=== PATIENT | female | born 1950 | race Caucasian/White ===

== ENCOUNTER 2021-06-22 19:55 | Inpatient (IN) | payer OTHER ==
[~2021-06-22] VITALS: Ht 162.6 cm; Wt 57.3 kg
[2021-06-22] MEDS ORDERED: IV NS 0.9% 1,000 ML BAG IV ONE (20:00)
--- NOTE | 2021-06-22 20:02 | NUR ---
[id number] FROM THE STREETS FOUND SLEEPING IN FRONT OF SOMEONES HOUSE C/O CHRONIC BODY PAIN. PATIENT ALERT AND ORIENTED X3. AMBULATORY WITH NON LABORED BREATHING IN BED 14 ON MONITOR AWAITING MD MONTOYA.
--- NOTE | 2021-06-22 20:07 | NUR ---
20G ESTABLISHED AT [facility]. BLOOD DRAWN AND SENT TO LAB.
--- NOTE | 2021-06-22 20:08 | NUR ---
FOUNDATION COORDINATOR AT BEDSIDE FOR EKG
--- NOTE | 2021-06-22 20:15 | NUR ---
COVID SWAB COLLECTED SENT TO LAB
[2021-06-22 20:17] LABS: BASOPHILS % (AUTO) 0.6 % (0.0-2.0); EOSINOPHILS % (AUTO) 4.2 % (0.0-6.0); HEMATOCRIT 31 % (33-45); HEMOGLOBIN 10.4 g/dL (11.5-14.8); LYMPHOCYTES # (AUTO) 2.9 K/uL (0.8-4.8); LYMPHOCYTES % (AUTO) 37.2 % (20.0-44.0); MEAN CORPUSCULAR HGB CONC 33 g/dl (31.0-36.0); MEAN CORPUSCULAR VOLUME 97 fL (82-100); MONOCYTES # (AUTO) 0.4 K/uL (0.1-1.30); MONOCYTES % (AUTO) 5.5 % (2.0-12.0); NEUTROPHILS # (AUTO) 4.1 K/uL (1.8-8.9); NEUTROPHILS % (AUTO) 52.5 % (43.0-81.0); PLATELET COUNT (AUTO) 449 K/uL (150-450); RED BLOOD CELL COUNT(AUTO) 3.22 MIL/uL (4.0-5.2); WHITE BLOOD COUNT (AUTO) 7.8 K/uL (4.3-11.0)
[2021-06-22 20:43] LABS: ALANINE AMINOTRANSFERASE 20 U/L (12-78); ALCOHOL, BLOOD 64 mg/dL (0-0); ALKALINE PHOSPHATASE 89 U/L (46-116); ASPARTATE AMINOTRANSFERASE 17 U/L (15-37); BILIRUBIN,TOTAL 0.1 mg/dL (0.2-1.0); CALCIUM, SERUM 8.3 mg/dL (8.5-10.1); CARBON DIOXIDE 24 mmol/L (21-32); CHLORIDE 106 mmol/L (98-107); CREATININE 1.1 mg/dL (0.6-1.3); GLUCOSE 114 mg/dL (74-106); POTASSIUM 3.7 mmol/L (3.5-5.1); SODIUM SERUM 141 mmol/L (136-145); TOTAL PROTEIN, SERUM 6.6 g/dL (6.4-8.2); UREA NITROGEN, BLOOD 21 mg/dL (7-18)
[2021-06-22 20:53] LABS: ACETAMINOPHEN < 0 ug/ml (10-30)
--- NOTE | 2021-06-22 21:54 | NUR ---
URINE COLLECTED AND SENT TO LAB
[2021-06-22 22:29] LABS: BILIRUBIN,URINE NEGATIVE (NEGATIVE); COLOR,URINE YELLOW (YELLOW); LEUKOCYTE ESTERASE ,URINE SMALL (NEGATIVE); NITRITE, URINE POSITIVE (NEGATIVE); PROTEIN,URINE NEGATIVE (NEGATIVE); UGLUCOSE NEGATIVE (NEGATIVE); UROBILINOGEN,URINE 0.2 EU/dL (0.2)
[2021-06-22] MEDS ORDERED: HYDROCODONE/APAP 5/325MG TABLET PO PRN (23:00)
[2021-06-22] MEDS ORDERED: ONDANSETRON HCL/PF 4 MG/2 ML VIAL IVP PRN (23:00)
[2021-06-22] MEDS ORDERED: MAGNESIUM HYDROXIDE 30 ML UDC PO PRN (23:00)
[2021-06-22] MEDS ORDERED: ACETAMINOPHEN 325 MG TABLET PO PRN (23:00)
[2021-06-22] MEDS ORDERED: Z GUARD REMEDY 4 OZ OINT TP PRN (23:00)
[2021-06-22] MEDS ORDERED: ZOLPIDEM TARTRATE 5 MG TABLET PO PRN (23:00)
[2021-06-22] MEDS ORDERED: LORAZEPAM INJ 2 MG/ML VIAL IV PRN (23:00)
[2021-06-22] MEDS ORDERED: MAG HYDROX/AL HYDROX/SIMETH 30 ML UDC PO PRN (23:00)
--- NOTE | 2021-06-22 23:05 | NUR ---
REPORT GIVEN TO SERAFIN STYLES
[2021-06-22 23:09] LABS: BACTERIA,URINE Many /HPF (None Seen); RBC,URINE 0-2 /HPF (0-2); SQUAMOUS EPITHELIAL CELL,UR Few /HPF (None Seen)
[2021-06-22 23:20] VITALS: BP 143/71
--- NOTE | 2021-06-22 23:28 | NUR ---
PATIENT TRANSFERRED, VSS.
[2021-06-22 23:35] VITALS: BP 143/71
--- NOTE | 2021-06-22 23:35 | NUR ---
RN NOTES RECEIVED PATIENT FROM ER WITH DX. OF FAILURE TO THRIVE, A/OX2-3, HOMELESS BUT COOPERATIVE, SKIN ASSESSMENT DONE, DENIES PAIN, GAVE BED BATH, NO SOB, BED IN LOCKED POSITION, SAFETY MEASURES APPLIED, CALL LIGHT WITHIN REACH, WILL CONTINUE TO MONITOR
[2021-06-23] MEDS: IV NS 0.9% 1,000 ML IV PRN (00:27)
--- NOTE | 2021-06-23 06:24 | NUR ---
RN NOTES AWAKE, MORNING CARE RENDERED, DENIES PAIN, NO SOB, SAFETY MEASURED APPLIED, PT. NEEDS ATTENDED
[2021-06-23 06:57] LABS: CALCIUM, SERUM 8.2 mg/dL (8.5-10.1); CREATININE 0.8 mg/dL (0.6-1.3); MAGNESIUM 1.7 mg/dL (1.8-2.4); PHOSPHORUS 3.4 mg/dL (2.5-4.9); POTASSIUM 3.7 mmol/L (3.5-5.1)
[2021-06-23 07:32] LABS: THYROID STIMULATING HORMONE 0.527 uIU/mL (0.358-3.74)
[2021-06-23 07:56] LABS: BASOPHILS # (AUTO) 0.2 K/uL (0.0-0.2); BASOPHILS % (AUTO) 1.7 % (0.0-2.0); EOSINOPHILS % (AUTO) 3.4 % (0.0-6.0); HEMATOCRIT 32 % (33-45); HEMOGLOBIN 10.6 g/dL (11.5-14.8); LYMPHOCYTES # (AUTO) 3.4 K/uL (0.8-4.8); LYMPHOCYTES % (AUTO) 37.4 % (20.0-44.0); MEAN CORPUSCULAR HGB CONC 33 g/dl (31.0-36.0); MEAN CORPUSCULAR VOLUME 96 fL (82-100); MONOCYTES # (AUTO) 0.6 K/uL (0.1-1.30); MONOCYTES % (AUTO) 6.5 % (2.0-12.0); NEUTROPHILS # (AUTO) 4.7 K/uL (1.8-8.9); PLATELET COUNT (AUTO) 458 K/uL (150-450); RED BLOOD CELL COUNT(AUTO) 3.31 MIL/uL (4.0-5.2); WHITE BLOOD COUNT (AUTO) 9.2 K/uL (4.3-11.0)
--- NOTE | 2021-06-23 08:01 | NUR ---
RN OPENING NOTE PATIENT RECEIVED IN BED, AO X 2-3, ABLE TO RESPONDS ALL STIMULI. IN NO ACUTE DISTRESS NOTED. RESPIRATORY EVEN AND UNLABORED ON RA. SKIN IS WARM TO TOUCH, KEEP CLEAN/DRY. KEPT ELEVATED HOB FOR ENSURE AIRWAY AND ASPIRATION PRECAUTION, ALSO LOWEST POSITION OF THE BED, S/R UP X 3, ALL SAFETY PRECAUTION APPLIED. CALL LIGHT WITHIN REACH, WILL CONTINUE TO MONITOR.
[2021-06-23] MEDS: PANTOPRAZOLE 40 MG TABLET.DR PO SCH (08:34)
[2021-06-23] MEDS: CEPHALEXIN MONOHYDRATE 500 MG CAPSULE PO SCH ×2 (08:35→20:56)
[2021-06-23] MEDS: Magnesium 1GM/D5W 100ML PREMIX 100 ML IV SCH ×2 (10:32→12:00)
--- NOTE | 2021-06-23 10:38 | NUR ---
SS Consult: SS consult requested for homelessness, drug use. The pt. is alert & oriented x 2 and makes good eye contact. The pt. has depressed mood & affect. The pt. possible cognitive deficit, poor historian. Pt. has slurred speech possibly secondary to missing teeth. Pt.'s denies SI/HI and denies auditory hallucinations. Pt. stated she experiences Visual hallucinations and she sees "hot dogs". Pt. denies history of mental illness, and states she has been experiencing homelessness for the past 10 years. Per pt. she does not receive any financial benefits and "people feed her". Per pt. she has 3 children and states 2 sons are policemen but could not elaborate is they live in the area. Pt. did not respond when asked if she is in communication with them. 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 Pt. denies drug or alcohol use. SW provided motivational interviewing and brief drug use intervention. SW offered pt. referral for drug rehab and pt. refused. Per nurse, the pt. can ambulate with a walker, is incontinent and has HX. of Seizure Disorder. Pt. could benefit from placement. SW spoke with CM about placement at bedside. Pt. was agreeable to possible SNF placement. SW provided provided pt. with homeless, addiction and mental health resources and pt. accepted them. Pt. signed homeless waiver and it was placed in the patient's chart. Year-round shelters: [facility] [address] [place] [address] ; [facility] [address] [place] [address]; [facility] [address] [facility]. [facility] [address] Hygiene: [facility]: [address] [place] ; [facility] [address] [facility] ; [facility] [address] . Food Resources: [facility] [facility] at [facility]- [address] [place]; Meet Each Need with Dignity ([facility]) [address] [place]; [facility] [address] [facility]; [facility] [address] [facility] [address]. Mental Health resources provided: [facility] [address] [place], [place] [address] ; [facility] [address] [facility] [address], [place] [address] ; [facility] [address] [place] [address] ; [facility] [address] [place], [place] [phone] Healthcare Clinics: [facility] [address] [facility], [address] [place]. [place] ; [facility] [address] [facility] [address] [place] [address]; [facility] [address] [place] [phone] Counseling--[facility] [address] [facility], [place] [address] (Specializes in in-depth psychotherapy for emotional distress: anxiety, depression, interpersonal conflicts, life transitions, childhood abuse) [facility] [address] [place], [place] [phone] (Assist with solving problem marital difficulties, separation & divorce, aging parents, & grief, chronic & terminal illness) [facility] [address] [place] [address] (Deal with loss & grief, anxiety, marital difficulties) Homebound/Mental Health Services [address] [facility], [address] [place], [place] [phone] (Provide in-home mental services to people who are incapable of leaving their homes) [facility] Elder[facility] Senior Service/Resource Center [address] [place], [place] [phone] [facility] [address] [facility] [place], [place] [phone] PSYCHIATRIC OUTPATIENT SERVICES [facility] Partial Hospitalization and Intensive Outpatient Program (Managed Care and [place] Only)[address] [facility] [phone] [facility] Partial Hospitalization and Outpatient [address] [place], [place] [phone] DAISY SKYLER [facility] Mental Health [place] Cli[address] [facility]. [address] [place], [place] [phone] [facility] Partial Hospitalization and Outpatient [id number] [facility], [phone] Substance Abuse resources provided included: [facility] Substance Abuse Self-Helpline ([facility]) ; [facility] [address] [facility]. [place] [phone] ; [facility] [address] [address] [facility] [address] ; [facility] [address] [address] ; [facility] [phone] ; [facility] Treatment [facility] [address] [facility] [address] ; [facility] [address] [facility] [phone] ; [facility] Substance Abuse Helpline([facility])-[facility] ; [facility] ; [facility] [place]; [facility] [place]; [facility] [address]; [facility]; [facility]; [facility]; [facility], [facility]. Keke Mckeon; Alcoholics Anonymous -sfv; [place] ; Marijuana Anonymous -[facility]; Narcotics Anonymous [email or web address];
--- NOTE | 2021-06-23 18:00 | NUR ---
RN CLOSE NOTE PATIENT IN BED, IN NO ACUTE DISTRESS OBSERVED. RESPIRATION EVEN AND UNLABORED ON RA. SKIN IS WARM TO TOUCH KEEP CLEAN//DRY, INTACT IV SITE. KEPT ELEVATED HOB FOR ENSURE AIRWAY AND ASPIRATION PRECAUTION. ALSO LOWEST POSITION OF THE BED FOR SAFETY. CALL LIGHT WITHIN REACH, WILL ENDORSE TO DEVULCANIZER TENDER.
[2021-06-23 20:00] VITALS: BP 153/65
--- NOTE | 2021-06-23 23:39 | NUR ---
RN OPENING NOTE PATIENT IN BED, EYES CLOSED. PATIENT IS A/O X 3 AT THIS TIME, ABLE TO MAKE NEEDS KNOWN. PATIENT DOES NOT REPORT ANY PAIN OR DISCOMFORT. PATIENT HAS A RAC 20 G PATIENT AND INTACT WITH NS AT 75 ML/HR ONGOING. PATIENT AMBULATORY TO THE RESTROOM. SAFETY MEASURES IN PLACE: BED LOCKED AND IN LOWEST POSITION, CALL LIGHT WITHIN REACH, SIDE RAILS UP. WILL MONITOR PATIENT CLOSELY. Addendum: 06/23/21 at 2402 by KENDAL WARREN RN 1922 TIME
[2021-06-24] MEDS: IV NS 0.9% 1,000 ML IV PRN (04:42)
--- NOTE | 2021-06-24 06:31 | NUR ---
RN CLOSING NOTE PATIENT IN BED, EYES CLOSED. PATIENT IS A/O X 3 AT THIS TIME, ABLE TO MAKE NEEDS KNOWN. PATIENT ON RA, TOLERATING WELL, NO SOB NOTED. PATIENT DOES NOT REPORT ANY PAIN OR DISCOMFORT. PATIENT HAS A RAC 20 G PATIENT AND INTACT WITH NS AT 75 ML/HR ONGOING. SAFETY MEASURES IN PLACE: BED LOCKED AND IN LOWEST POSITION, CALL LIGHT WITHIN REACH, SIDE RAILS UP. ALL NEEDS MET AND ATTENDED. ALL ORDERS CARRIED OUT. WILL ENDORSE TO DAY SHIFT NURSE FOR ULISES.
[2021-06-24 06:51] LABS: BASOPHILS % (AUTO) 0.4 % (0.0-2.0); HEMATOCRIT 34 % (33-45); HEMOGLOBIN 11.2 g/dL (11.5-14.8); LYMPHOCYTES # (AUTO) 3.1 K/uL (0.8-4.8); LYMPHOCYTES % (AUTO) 39.7 % (20.0-44.0); MEAN CORPUSCULAR HGB CONC 33 g/dl (31.0-36.0); MEAN CORPUSCULAR VOLUME 96 fL (82-100); MONOCYTES # (AUTO) 0.5 K/uL (0.1-1.30); MONOCYTES % (AUTO) 6.1 % (2.0-12.0); NEUTROPHILS % (AUTO) 50.8 % (43.0-81.0); PLATELET COUNT (AUTO) 456 K/uL (150-450); RED BLOOD CELL COUNT(AUTO) 3.55 MIL/uL (4.0-5.2); WHITE BLOOD COUNT (AUTO) 7.8 K/uL (4.3-11.0)
[2021-06-24 07:03] LABS: CALCIUM, SERUM 8.2 mg/dL (8.5-10.1); CREATININE 0.8 mg/dL (0.6-1.3); MAGNESIUM 2.1 mg/dL (1.8-2.4); PHOSPHORUS 3.7 mg/dL (2.5-4.9); POTASSIUM 3.7 mmol/L (3.5-5.1)
[2021-06-24 08:00] VITALS: BP 157/81
--- NOTE | 2021-06-24 08:06 | NUR ---
RN OPENING NOTE PATIENT RECEIVED IN BED, AO X 2-3, ABLE TO RESPONDS ALL STIMULI. IN NO ACUTE DISTRESS NOTED. RESPIRATORY EVEN AND UNLABORED ON RA. SKIN IS WARM TO TOUCH, KEEP CLEAN/DRY. KEPT ELEVATED HOB FOR ENSURE AIRWAY AND ASPIRATION PRECAUTION, ALSO LOWEST POSITION OF THE BED, S/R UP X 3, BED ALARM IS ON AT ALL TIMES. ALL SAFETY PRECAUTION APPLIED. CALL LIGHT WITHIN REACH, WILL CONTINUE TO MONITOR.
[2021-06-24] MEDS: PANTOPRAZOLE 40 MG TABLET.DR PO SCH (08:20)
[2021-06-24] MEDS: CEPHALEXIN MONOHYDRATE 500 MG CAPSULE PO SCH ×2 (08:21→21:00)
--- NOTE | 2021-06-24 10:04 | NUR ---
WOUND CARE CONSULT: PT PRESENTS WITH SOME AREAS OF SKIN DISCOLORATION AND VERY TANNED SKIN WITH LEFT ANKLE DRY SCAB, PRESENT ON ADMISSION. NO TENDERNESS, ERYTHEMA OR DRAINAGE NOTED TO SCAB. PT IS AMBULATORY AND CONTINENT. WILL SEE PRN.
--- NOTE | 2021-06-24 15:50 | NUR ---
SS Note: SW spoke with pt. regarding discharge planning. Pt. stated that she wants a TAP card to go to [facility]. SW provided pt. with resources and directions to [facility] for an intake for usp. Pt. signed homeless waiver and its placed in chart.
--- NOTE | 2021-06-24 18:30 | NUR ---
RN CLOSE NOTE PATIENT IN BED, IN NO ACUTE DISTRESS OBSERVED. RESPIRATION EVEN AND UNLABORED ON RA. SKIN IS WARM TO TOUCH KEEP CLEAN//DRY. KEPT ELEVATED HOB FOR ENSURE AIRWAY AND ASPIRATION PRECAUTION. ALSO LOWEST POSITION OF THE BED FOR SAFETY. CALL LIGHT WITHIN REACH, WILL ENDORSE TO LEGAL RECOVERY SPECIALIST.
--- NOTE | 2021-06-24 19:00 | NUR ---
BLAISE/JAVIER AWARE OF THAT PATIENT STAY OVER TONIGHT.
--- NOTE | 2021-06-24 20:39 | NUR ---
MS RN OPENING RECEIVED PATIENT IN BED WITH EYES CLOSED EASY TO AROUSE. NO S/S OF APPARENT DISTRESS ON ROOM AIR. NO C/O PAIN. PATIENT DISCHARGE IN PLACE ENDORSED BY AM NURSE MD AWARE PATIENT STAY THROUGH THE NIGHT. WILL MONITOR.
[2021-06-25 06:15] LABS: BASOPHILS # (AUTO) 0.1 K/uL (0.0-0.2); BASOPHILS % (AUTO) 1.9 % (0.0-2.0); HEMATOCRIT 33 % (33-45); HEMOGLOBIN 10.7 g/dL (11.5-14.8); LYMPHOCYTES # (AUTO) 3.4 K/uL (0.8-4.8); LYMPHOCYTES % (AUTO) 45.8 % (20.0-44.0); MEAN CORPUSCULAR HGB CONC 33 g/dl (31.0-36.0); MEAN CORPUSCULAR VOLUME 96 fL (82-100); MONOCYTES # (AUTO) 0.6 K/uL (0.1-1.30); MONOCYTES % (AUTO) 7.8 % (2.0-12.0); NEUTROPHILS % (AUTO) 40.5 % (43.0-81.0); PLATELET COUNT (AUTO) 437 K/uL (150-450); WHITE BLOOD COUNT (AUTO) 7.3 K/uL (4.3-11.0)
[2021-06-25 06:29] LABS: CALCIUM, SERUM 8.7 mg/dL (8.5-10.1); CREATININE 0.7 mg/dL (0.6-1.3); MAGNESIUM 1.9 mg/dL (1.8-2.4); PHOSPHORUS 4.6 mg/dL (2.5-4.9); POTASSIUM 3.9 mmol/L (3.5-5.1)
--- NOTE | 2021-06-25 07:23 | NUR ---
RN OPENING NOTES RECEIVED PATIENT IN BED, AWAKE, NO SIGNS OF ACUTE DISTRESS NOTED. STABLE ON ROOM AIR. NO SOB NOTED, BREATHING EVEN AND UNLABORED. NO IV ACCESS. PER NOC NURSE PATIENT IS FOR DISCHARGE TODAY. SAFETY MEASURE IN PLACE, BED IN LOWEST AND LOCKED POSITION, SR UP X2, CALL LIGHT PLACED WITHIN EASY REACH. WILL CONTINUE TO MONITOR PATIENT.
--- NOTE | 2021-06-25 07:38 | NUR ---
MS RN CLOSING REPORT GIVEN TO LUCAS FOR CONTINUITY OF CARE.
[2021-06-25 08:00] VITALS: BP 177/97
[2021-06-25] MEDS: CEPHALEXIN MONOHYDRATE 500 MG CAPSULE PO SCH (08:26)
[2021-06-25] MEDS: PANTOPRAZOLE 40 MG TABLET.DR PO SCH (08:26)
--- NOTE | 2021-06-25 12:53 | NUR ---
QUALITY ASSURANCE LAB TECHNICIAN NOTES PATIENT DISCHARGED IN STABLE CONDITION. PATIENT SHE IS GOING TO [facility] VIA BUS. SSW GAVE PATIENT TAP CARD YESTERDAY FOR THE BUS. ALL PATIENT'S BELONGINGS ACCOUNTED FOR, FORM SIGNED BY PATIENT. ARM NAME BAND REMOVED. PT DOES NOT HAVE IV ACCESS. EXITCARE FOLDER WAS GIVEN TO PATIENT, HEALTH TEACHINGS PROVIDED WITH VERBALIZATION OF UNDERSTANDING. PATIENT LEFT UNIT @1250 ACCOMPANIED TO THE LOBBY, PATIENT IS AMBULATORY. CN AWARE OF DISCHARGE.
== END 2021-06-25 12:45 | disposition home or self-care (01) | DRG 422 ==
LOC: ER 20:06 → TELE 22:27 → MED 23:58
PROVIDERS: ADMIT Nurse Practitioner Acute Care; ATTEND Nurse Practitioner Acute Care
DX: E86.0 Dehydration (principal); E44.0 Moderate protein-calorie malnutrition; E88.09 Other disorders of plasma-protein metabolism, not elsewhere classified; F25.9 Schizoaffective disorder, unspecified; R62.7 Adult failure to thrive; G40.909 Epilepsy, unspecified, not intractable, without status epilepticus; Z68.21 Body mass index [BMI] 21.0-21.9, adult; N39.0 Urinary tract infection, site not specified; Z59.00 Homelessness unspecified; R79.89 Other specified abnormal findings of blood chemistry; B96.89 Other specified bacterial agents as the cause of diseases classified elsewhere; F15.10 Other stimulant abuse, uncomplicated; F41.9 Anxiety disorder, unspecified
CPT/HCPCS: 36415; 70450-TC; 71045-TC; 80048-TC; 80076-TC; 81001; 83735-TC; 84100-TC; 84443-TC; 84484-TC; 85025-TC; 87081-TC; 87086-TC; 87186-TC; 97116-TC; 97530-TC; C9803; G0378; G0480; J3475; J7030; J7050